=== PATIENT | male | born 1955 | race Caucasian/White ===

== ENCOUNTER 2017-02-03 22:28 | Emergency (ER) | payer MEDICAID, OTHER ==
[~2017-02-03] VITALS: Ht 180.3 cm; Wt 79.4 kg
[2017-02-03 22:40] VITALS: BP 112/69
[2017-02-03] MEDS ORDERED: FUROSEMIDE20 M1 ORAL (22:40)
[2017-02-03] MEDS ORDERED: SPIRONOLACTONE100 MG ORAL (22:40)
[2017-02-03 23:26] LABS: APPEARANCE,URINE SLIGHTLY CLOUDY; KETONES,URINE NEGATIVE (NEGATIVE); LEUKOCYTE ESTERASE ,URINE 1+ (NEGATIVE); NITRITE,URINE NEGATIVE (NEGATIVE); PH,URINE 6 (4.5-8.0); PROTEIN,URINE 2+ (NEGATIVE); UROBILINOGEN,URINE NORMAL MG/DL (0.0-1.0)
[2017-02-03 23:40] LABS: BACTERIA,URINE OCCASIONAL /HPF; SQUAMOUS EPITHELIAL CELL,UR OCCASIONAL /LPF (NONE/OCC)
[2017-02-04] MEDS ORDERED: Albuterol ud Inhalation HHN ONE (00:30)
[2017-02-04] MEDS ORDERED: Morphine Sulfate 4mg/ml Inj IVP ONE (00:30)
--- NOTE | 2017-02-04 00:30 | Emergency Room Report ---
History of Present Illness General Chief Complaint: Male Urogenital Problems Source: Patient, Family Member Present Illness HPI 62-year-old male walks in with multiple complaints. Endorses one week of pain to lower back, quality is like fire, nonradiating. No history of lower Back trauma. No recent heavy lifting. No associated dysuria, polyuria, fever or chills. Sexually active only with . Distant history of renal stones, he thinks, but there was no diagnostic evidence of renal stones in the past. denies any blood in urine Allergies: Coded Allergies: No Known Allergies (Unverified , 02/03/17) Patient History Past Medical History: CHF, psych hx Past Surgical History: pacemaker Pertinent Family History: none Social History: Reports: smoking Immunizations: UTD Reviewed Nursing Documentation: PMH: Agreed, PSxH: Agreed Nursing Documentation-PMH Past Medical History: No History, Except For Hx Cardiac Problems: Yes - CHF Hx Pacemaker: Yes - Defibrillator Physical Exam Vital Signs Date Time Temp Pulse Resp B/P (MAP) Pulse Ox O2 Delivery O2 Flow Rate FiO2 02/03/17 22:33 97.5 70 16 112/69 98 Room Air Medical Decision Making Diagnostic Impression: Primary Impression: UTI (urinary tract infection) Qualified Codes: N30.01 - Acute cystitis with hematuria Additional Impressions: Back pain Qualified Codes: M54.5 - Low back pain; G89.29 - Other chronic pain Chest tightness ER Course Chest tightness: She has history of smoking, no known history of COPD or asthma. Bnp within normal limits and chest x-ray does not show significant pulmonary congestion. low suspicion for acute on chronic CHF. Wheezing likely due to chronic smoking, and serial exam lungs clear to auscultation after albuterol, patient feels much better. he does have history of heart failure however troponin x2 were within normal limits. Patient takes daily aspirin. Unlikely acute ACS at this time. Patient does not have chest pain or shortness of breath. Low back pain: There is some blood in the urine, howeverr on noncontrast CT, no evidence of obstructive renal calculus, no other finding to explain patient's symptoms. Pain for one month likely musculoskeletal in nature, especially given constant, worse with movement. Patient does have some bacteria in the urine, was given IV antibiotics in the ER. Gave prescription for UTI as well to take at home. Offered admission to r/o ACS and for pain control, but patient is electing to go home instead. ER course: Patient has remained stable during ED stay. Patient is to be discharged to home. Prescriptions given are macrobid, robaxin, albuterol Patient is instructed to follow up with their primary care doctor within 5 days. Strict return precautions discussed with patient such as fever, chills, worsening/severe pain, nausea, vomiting, which may indicate severe illness. Patient verbalizes understanding and agrees with plan. Please note that this Emergency Department Report was dictated using [email or web address] technology software, occasionally this can lead to erroneous entry secondary to interpretation by the dictation equipment Last Vital Signs Date Time Temp Pulse Resp B/P (MAP) Pulse Ox O2 Delivery O2 Flow Rate FiO2 02/04/17 00:25 75 19 97 Room Air 02/03/17 22:33 97.5 112/69 Status: improved Disposition: HOME, SELF-CARE Scripts Albuterol Sulfate (VENTOLIN HFA) 18 Gm Hfa.aer.ad 1 PUFF INH EVERY 6 HOURS for chest tightness, #18 GM 0 Refills Prov: MAGED DARLING M.D. 02/04/17 Methocarbamol* (ROBAXIN-750*) 750 Mg Tablet 750 MG PO TID for low back pain for 7 Days, #30 TAB 0 Refills Prov: MAGED DARLING M.D. 02/04/17 Nitrofurantoin Monohyd/M-Cryst* (MACROBID 100 MG*) 100 Mg Capsule 100 MG ORAL EVERY 12 HOURS for 7 Days, #14 CAP Prov: MAGED DARLING M.D. 02/04/17 [facility] MAGED DARLING M.D. Feb 04, 2017 00:30
[2017-02-04 00:35] VITALS: BP 108/52
[2017-02-04 00:49] LABS: BASOPHILS % (AUTO) 1.3 % (0.0-2.0); EOSINOPHILS % (AUTO) 6.3 % (0.0-3.0); LYMPHOCYTES % (AUTO) 30.5 % (20.0-45.0); MEAN CORPUSCULAR HEMOGLOBIN 31.6 PG (27.0-31.0); MEAN CORPUSCULAR HGB CONC 32.3 G/DL (32.0-36.0); MEAN CORPUSCULAR VOLUME 98 FL (80-99); MEAN PLATELET VOLUME 7.7 FL (6.5-10.1); MONOCYTES % (AUTO) 5.7 % (1.0-10.0); NEUTROPHILS % (AUTO) 56.2 % (45.0-75.0); PLATELET COUNT 171 K/UL (150-450); RED BLOOD COUNT 5.18 M/UL (4.70-6.10); RED CELL DISTRIBUTION WIDTH 11.9 % (11.6-14.8); WHITE BLOOD COUNT 7.5 K/UL (4.8-10.8)
[2017-02-04 01:03] LABS: ANION GAP 6 mmol/L (5-15); CALCIUM 9.2 MG/DL (8.5-10.1); CARBON DIOXIDE 29 MMOL/L (21-32); CHLORIDE 101 MMOL/L (98-107); GLOMERULAR FILTRATION RATE > 60 mL/min (>60); POTASSIUM 4.3 MMOL/L (3.5-5.1); SODIUM 136 MMOL/L (136-145)
[2017-02-04 01:18] LABS: ALANINE AMINOTRANSFERASE 23 U/L (12-78); ALBUMIN/GLOBULIN RATIO 0.9 (1.0-2.7); ASPARTATE AMINO TRANSFERASE 17 U/L (15-37); TOTAL PROTEIN 7.8 G/DL (6.4-8.2)
[2017-02-04] MEDS ORDERED: SPIRONOLACTONE1 EACH ORAL (01:33)
[2017-02-04] MEDS ORDERED: ZOLPIDEM TARTRA10 MG ORAL (01:33)
[2017-02-04] MEDS ORDERED: KLONOPIN1 MG ORAL (01:33)
[2017-02-04] MEDS ORDERED: NABUMETONE500 MG PO (01:33)
[2017-02-04] MEDS ORDERED: ATORVASTATIN CA20 MG ORAL (01:33)
[2017-02-04] MEDS ORDERED: PAROXETINE HC12.5 MG ORAL (01:33)
[2017-02-04] MEDS ORDERED: LISINOPRIL20 MG ORAL (01:33)
[2017-02-04 02:00] VITALS: BP 106/62
[2017-02-04] MEDS ORDERED: cefTRIAXone 1 GM in NS 55 ML IVPB ONE (02:30)
[2017-02-04] MEDS ORDERED: NITROFURANTOIN100 M2 ORAL (03:38)
[2017-02-04] MEDS ORDERED: VENTOLIN HFA18 GM INH (03:38)
[2017-02-04] MEDS ORDERED: ROBAXIN-750750 MG PO (03:38)
[2017-02-04 04:40] VITALS: BP 111/72
--- NOTE | 2017-02-04 09:26 | Diagnostic Imaging Report ---
Indication: Back pain Technique: CT scan of the abdomen and pelvis utilizing automated exposure control without intravenous or oral contrast. Axial, sagittal and coronal images were obtained. CT dose: Total DLP 797 mGycm; CTDI vol 14.6 mGy Comparison: None Findings: Evaluation of the solid organs is limited without intravenous contrast material. There is dependent atelectasis. The adrenal glands, spleen and pancreas are unremarkable. Gallstones are present. Bilateral renal hypodensities are present suggestive of cysts measuring up to 3.5 cm. There is a 5 mm nonobstructive calculus of the right kidney. There is a 5 mm nonobstructive calculus of the left kidney. There is no hydronephrosis. No ureteral calculi are seen. Atherosclerotic changes are present. The small bowel loops are normal in caliber. There is no free intraperitoneal fluid or air. Bladder is not well distended. Degenerative changes of the spine are present. Impression: No hydronephrosis or ureteral calculi. Nonobstructive bilateral renal calculi. Cholelithiasis. Bilateral renal cysts. Atherosclerotic changes. Bladder not well-distended. Mild bladder wall thickening suggested. Findings may suggest chronic outlet obstruction but cystitis not excluded. Clinical correlation recommended. Mildly prominent prostate. Further evaluation recommended as indicated. Other findings as above. The CT scanner at [facility] is accredited by the [employer] and the scans are performed using protocols designed to limit radiation exposure to as low as reasonably achievable to attain images of sufficient resolution adequate for diagnostic evaluation.
--- NOTE | 2017-02-04 09:28 | Diagnostic Imaging Report ---
Indication: Chest pain Technique: XRAY CHEST 1 V Comparison: None Findings: Cardiac silhouette is prominent. Sternotomy wires are seen. A left chest pacemaker obscures the left upper chest. There is no consolidation or pleural effusion. Degenerative changes are present. Impression: No acute cardiopulmonary disease. Cardiomegaly. Sternotomy wires and left chest pacemaker.
--- NOTE | 2017-02-04 09:28 | Diagnostic Imaging Report ---
Indication: Back pain Technique: XRAY SPINE LUMBAR 2-3V Comparison: None Findings: There is no acute fracture. Degenerative endplate osteophytes of the lumbar spine are seen. There is mild disc space narrowing of L3/L4, L4/L5 and L5/S1. Degenerative facet changes are seen. Atherosclerotic changes are noted. Calculi of the bilateral kidneys are present. Impression: No acute osseous abnormality. Degenerative changes of the lumbar spine. Atherosclerotic changes. Bilateral renal calculi.
== END 2017-02-04 04:45 | disposition home or self-care (01) ==
LOC: EMR 22:45 → UNDOADMIN 02-04 01:49 → 2E 02-04 01:49 → EDBEDREQ 02-04 03:02 → EMR 02-04 04:45
DX: N30.01 Acute cystitis with hematuria (principal); M54.5 Low back pain; G89.29 Other chronic pain; R07.89 Other chest pain; I50.9 Heart failure, unspecified; Z95.810 Presence of automatic (implantable) cardiac defibrillator; F17.200 Nicotine dependence, unspecified, uncomplicated
CPT/HCPCS: 36415; 71010; 72020; 74176; 80053; 80307; 81003; 82550; 82553; 83880; 84484; 85025; 93005; 94640; 94664; 96374; 96375; 99284; J0696; J2270; J2405